=== PATIENT | female | born 1975 | race Two or more races ===

== ENCOUNTER 2016-09-04 19:27 | Emergency (ER) | payer OTHER ==
[~2016-09-04] VITALS: Ht 162.6 cm; Wt 72.1 kg
[~2016-09-04 19:27] MED LIST: AMOX500C2 PO; LEVO75CA PO; PRENCAP
[2016-09-04 20:53] LABS: Basophils # (auto) 0.2 uL; Basophils % (auto) 0.8 % (0.0-2.0); Eosinophils # (auto) 0.1 uL; Eosinophils % (auto) 0.3 % (0.0-7.0); Hematocrit 40.8 % (36.0-46.0); Hemoglobin 13.7 g/dL (12.2-16.2); Lymphocytes # (auto) 2.1 uL; Lymphocytes % (auto) 10.1 % (10.0-50.0); Mean Corpuscular Hemoglobin 28.1 pg (28.0-32.0); Mean Corpuscular Hgb Conc. 33.7 g/dL (32.0-36.0); Mean Corpuscular Volume 83.4 fL (80.0-100.0); Mean Platelet Volume 8.2 fL (7.4-10.4); Monocytes # (auto) 0.7 uL; Monocytes % (auto) 3.5 % (0.0-12.0); Neutrophils # (auto) 17.6 uL; Neutrophils % (auto) 85.3 % (37.0-80.0); Platelet Count (auto) 331 10^3/uL (140-450); Red Cell Distribution Width 13.9 % (11.6-16.0); White Blood Cell 20.6 10^3/uL (4.4-10.8)
[2016-09-04 21:10] LABS: Albumin 4.2 g/dL (3.4-5.0); BUN/Creatinine Ratio 13.4; Calcium 8.5 mg/dL (8.5-10.1); Potassium 3.6 mmol/L (3.5-5.1)
[2016-09-04 21:13] LABS: Bilirubin, Total 0.5 mg/dL (0.2-1.0); Total Protein 8.1 g/dL (6.4-8.2)
[2016-09-04] MEDS ORDERED: SODIUM CHLORIDE 0.9% 1,000 ML IV ONE (23:15)
[2016-09-05] MEDS ORDERED: cefTRIAXone 1GM/50ML D5W 50 ML IV ONE (00:45)
[2016-09-05 00:54] VITALS: BP 102/56
[2016-09-05] MEDS ORDERED: KETOROLAC TROMETH 30 MG/ML 1ML VIAL IV ONE (02:00)
== END 2016-09-05 02:51 | disposition home or self-care (01) ==
LOC: ER 19:33
DX: N61.0 Mastitis without abscess (principal); R10.30 Lower abdominal pain, unspecified
CPT/HCPCS: 36415; 74176; 76642; 80053; 83605; 85025; 87040; 96361; 96365; 96375; 99285; J0696; J1885; J7030